=== PATIENT | female | born 2000 | race Caucasian/White ===

== ENCOUNTER 2021-10-19 07:13 | Outpatient (CLI) | payer OTHER ==
--- NOTE | 2021-10-19 15:55 | Ultrasound Report ---
PROCEDURE: OB F/U or Repeat INDICATIONS: SUPERVISION OF OUTSIDE/PRIOR DATING DATA: Last menstrual period (LMP): 04/30/2021. LMP-based estimated date of delivery (CALEB): 02/04/2022. First dating scan (date and location): 09/26/2021. Estimated date of delivery (CALEB) from first dating scan: 02/07/2022. The below data below was generated using the ultrasound CALEB of 02/07/2022 TECHNIQUE: Real-time scanning was performed of the fetus, with image documentation and biometric measurements. Endovaginal scanning: Performed COMPARISON: 09/26/2021. FINDINGS: General: A single living intrauterine gestation is present. Presentation: There is interval Placenta: Placental position is anterior, without previa. Amniotic fluid index: 13.9 cm, normal 5-24 cm. Largest amniotic fluid pocket 4.6 cm. heart rate: 152 beats per minute. Maternal cervical canal: Closed and 5.8 cm long; normal length is 2.5 cm or more. Limited evaluation of anatomy demonstrates normal spine and normal right hand. Three-vessel umb ilical cord noted. Marginal placenta insertion of the umbilical cord. vocal cord insertion is n ormal. Other: Not applicable. IMPRESSION: 1. Single living intrauterine . 2. Normal amniotic fluid index. 3. Normal spine and right hand. 4. Marginal placenta previa insertion of the umbilical cord. Reviewed by: Sandra Das MD, PhD on 10/19/2021 3:53 PM PDT Approved by: Sandra Das MD, PhD on 10/19/2021 3:53 PM PDT Station ID: [id number]
== END 2021-10-19 07:14 | disposition home or self-care (01) ==
LOC: DI 07:13
PROVIDERS: ATTEND Family Medicine
DX: Z34.00 Encounter for supervision of normal first pregnancy, unspecified trimester (principal)